=== PATIENT | female | born 1980 | race Caucasian/White ===

== ENCOUNTER 2016-08-25 06:44 | Observation (INO) | payer BC ==
[2016-08-21 10:03] VITALS: Ht 167.6 cm; Wt 86.2 kg
[~2016-08-25] VITALS: Ht 167.6 cm; Wt 86.2 kg
[2016-08-25] VITALS (17 sets, daily range): BP systolic 122–147; RESP 12–26; TEMP 97.6–98.6
[2016-08-25] MEDS ORDERED: CEFAZOLIN 2,000 MG in SODIUM CHLORIDE 0.9% 100 ML IV ONE (07:05)
[2016-08-25] MEDS ORDERED: SCOPOLAMINE PATCH TRANSDERM ONE (07:10)
[2016-08-25] MEDS ORDERED: LIDOCAINE 1% BUFFERED 1 ML SYR INTRADERM PRN (07:10)
[2016-08-25] MEDS ORDERED: GLYCOPYRROLATE 0.2 MG/ML VIAL IV ONE (07:10)
[2016-08-25] MEDS ORDERED: ONDANSETRON 4 MG VIAL IV ONE (07:10)
[2016-08-25] MEDS ORDERED: MIDAZOLAM 2 MG/2 ML INJ IV ONE (07:10)
[2016-08-25] MEDS ORDERED: LACT RINGERS 1,000 ML IV SCH (07:10)
[2016-08-25] MEDS ORDERED: ONDANSETRON 4 MG VIAL IV PRN ×2 (09:20→10:05)
[2016-08-25] MEDS ORDERED: MORPHINE 2 MG/ML SYR IV PRN (09:20)
[2016-08-25] MEDS ORDERED: MORPHINE 4 MG/ML SYR IV PRN (09:20)
[2016-08-25] MEDS ORDERED: OXYCODONE 5 MG TAB PO PRN (09:20)
[2016-08-25] MEDS ORDERED: MEPERIDINE 25 MG/ML IV PRN (09:20)
[2016-08-25] MEDS ORDERED: KETAMINE INJ 50 MG/ML VIAL IV ONE (10:00)
[2016-08-25] MEDS ORDERED: LIDOCAINE 2% SYR 5 ML IV ONE (10:00)
[2016-08-25] MEDS ORDERED: PROPOFOL 50ML VIAL IV ONE (10:00)
[2016-08-25] MEDS ORDERED: FENTANYL 100 MCG/2 ML AMP ONE (10:00)
[2016-08-25] MEDS ORDERED: DILAUDID 1 MG/ML AMP ONE (10:00)
[2016-08-25] MEDS ORDERED: ROCURONIUM 50 MG VIAL IV ONE (10:00)
[2016-08-25] MEDS ORDERED: SUGAMMADEX 200 MG/2 ML VIAL IV ONE (10:00)
[2016-08-25] MEDS ORDERED: ACETAMINOPHEN 1,000 MG/100 ML IV ONE (10:00)
[2016-08-25] MEDS ORDERED: DEXAMETHASONE 4 MG/ML VIAL ONE (10:00)
[2016-08-25] MEDS ORDERED: PROPOFOL 20 ML VIAL IV ONE (10:00)
[2016-08-25] MEDS ORDERED: MORPHINE 50 MG/50 ML PCA BAG IV SCH (10:05)
[2016-08-25] MEDS ORDERED: KETOROLAC 30 MG/ML VIAL IV PRN (10:05)
[2016-08-25] MEDS ORDERED: BISACODYL 10 MG SUPP RECTAL PRN (10:05)
[2016-08-25] MEDS ORDERED: ZOLPIDEM 5 MG TAB PO PRN (10:05)
[2016-08-25] MEDS ORDERED: PROMETHAZINE 25 MG/ML VIAL IM/IV PRN (10:05)
[2016-08-25] MEDS: DILAUDID 1 MG/ML AMP IV PRN ×2 (10:36→10:52)
[2016-08-25] MEDS ORDERED: VAG VAG ONE (11:10)
[2016-08-25] MEDS ORDERED: VASOPRESSIN 20 UNITS/ML VIAL IV ONE (11:10)
[2016-08-25] MEDS ORDERED: CLINDAMYCIN VAG ONE (11:10)
[2016-08-25] MEDS: OXYCODONE/APAP 5/325 TAB PO PRN ×3 (12:52→20:13)
[2016-08-25] MEDS: LACT RINGERS 1,000 ML IV SCH (16:03)
[2016-08-25] MEDS: CEFAZOLIN 2,000 MG in SODIUM CHLORIDE 0.9% 100 ML IV SCH (19:46)
[2016-08-25] MEDS ORDERED: DOCUSATE SOD 100 MG CAP PO ONE (21:00)
[2016-08-25] MEDS ORDERED: DIAZEPAM 5 MG TAB PO ONE (21:50)
[2016-08-26] MEDS: CEFAZOLIN 2,000 MG in SODIUM CHLORIDE 0.9% 100 ML IV SCH ×2 (00:31→08:37)
[2016-08-26] MEDS: LACT RINGERS 1,000 ML IV SCH (00:32)
[2016-08-26 03:56] VITALS: BP_SYST 120; RESP 20; TEMP 98.4
[2016-08-26] MEDS: OXYCODONE/APAP 5/325 TAB PO PRN ×3 (05:40→11:56)
[2016-08-26 08:03] VITALS: BP_SYST 131; RESP 18; TEMP 98.2
[2016-08-26 11:36] VITALS: BP_SYST 149; RESP 18; TEMP 98
[2016-08-26 12:35] VITALS: BP_SYST 149; RESP 18; TEMP 98
[2016-08-28] MEDS ORDERED: REMOVE SCOPALAMINE PATCH XX ONE (07:10)
== END 2016-08-26 11:41 | disposition home or self-care (01) ==
LOC: OSEC 06:44 → SDS 10:02 → ENPENDDIS 10:02 → 3S 11:58
PROVIDERS: ADMIT Obstetrics & Gynecology; ATTEND Obstetrics & Gynecology
DX: D25.2 Subserosal leiomyoma of uterus (principal); N80.0 Endometriosis of uterus; N87.0 Mild cervical dysplasia
CPT/HCPCS: 81025; 85025; 88307